=== PATIENT | male | born 1980 | race Two or more races ===

== ENCOUNTER 2017-04-25 20:47 | Emergency (ER) | payer OTHER ==
[~2017-04-25] VITALS: Ht 182.9 cm; Wt 77.1 kg
--- NOTE | 2017-04-25 20:47 | NUR ---
PT SPRING FROM IN AND OUT C/O SOB. HX OF ASTHMA EXACERBATION. STATES, RAN OUT OF INHALER. GETTING ALBUTEROL AGRICULTURIST. GOWNED AND PLACED ON MONITOR. STABLE VITALS. AWAITING MD LUNSFORD.
--- NOTE | 2017-04-25 21:02 | NUR ---
KEE WOODS AT BEDSIDE FOR EVAL.
[2017-04-25] MEDS ORDERED: IPRATROPIUM NEB FS 0.5 MG/2.5 ML AMPUL.NEB ONE (21:24)
[2017-04-25] MEDS ORDERED: ALBUTEROL FS 2.5 MG/0.5 ML VIAL.NEB ONE (21:24)
[2017-04-25] MEDS ORDERED: IPRATROPIUM NEB FS 0.5 MG/2.5 ML AMPUL.NEB NEB ONE (21:30)
[2017-04-25] MEDS ORDERED: ALBUTEROL FS 2.5 MG/3 ML VIAL.NEB CONTNEB ONE (21:30)
--- NOTE | 2017-04-25 22:48 | NUR ---
Patient discharged to home in stable condition. Written and verbal after care instructions given. Patient verbalizes understanding of instruction.
[2017-04-25 22:49] VITALS: BP 125/78
== END 2017-04-25 22:50 | disposition home or self-care (01) ==
LOC: ER 20:47
DX: J45.901 Unspecified asthma with (acute) exacerbation (principal); F17.200 Nicotine dependence, unspecified, uncomplicated
CPT/HCPCS: 71045; 94644; 99285; 99406; A4606; Z7610

== ENCOUNTER 2017-06-01 10:20 | Emergency (ER) | payer OTHER ==
[~2017-06-01] VITALS: Ht 185.4 cm; Wt 77.1 kg
[2017-06-01] MEDS ORDERED: Magnesium 1GM/D5W 100ML PREMIX 200 ML IV ONE ×2 (11:12→11:32)
[2017-06-01] MEDS ORDERED: ALBUTEROL FS 2.5 MG/3 ML VIAL.NEB CONTNEB ONE (11:30)
[2017-06-01] MEDS ORDERED: IV NS 0.9% 1,000 ML BAG IV ONE (11:30)
[2017-06-01] MEDS ORDERED: methylPREDNISolone SOD SUCC 125 MG/2ML VIAL IV ONE (11:30)
[2017-06-01] MEDS ORDERED: IPRATROPIUM NEB FS 0.5 MG/2.5 ML AMPUL.NEB NEB ONE (11:30)
[2017-06-01] MEDS ORDERED: methylPREDNISolone SOD SUCC 125 MG/2ML VIAL ONE (11:31)
[2017-06-01] MEDS ORDERED: ALBUTEROL FS 2.5 MG/3 ML VIAL.NEB ONE (11:37)
[2017-06-01] MEDS ORDERED: IPRATROPIUM NEB FS 0.5 MG/2.5 ML AMPUL.NEB ONE (11:37)
[2017-06-01 13:36] VITALS: BP 128/74
== END 2017-06-01 13:38 | disposition home or self-care (01) ==
LOC: ER 10:21
DX: J45.901 Unspecified asthma with (acute) exacerbation (principal); Z72.0 Tobacco use; Z91.19 Patient's noncompliance with other medical treatment and regimen; Z60.2 Problems related to living alone
CPT/HCPCS: A4606; J2930; J3475; J7030; Z7610

== ENCOUNTER 2018-01-12 23:52 | Emergency (ER) | payer OTHER ==
[~2018-01-12] VITALS: Ht 182.9 cm; Wt 81.6 kg
[2018-01-13 00:02] VITALS: BP 118/72
--- NOTE | 2018-01-13 00:05 | NUR ---
RT CALLED FOR BREATHING TX
[2018-01-13] MEDS ORDERED: predniSONE 20 MG TABLET ONE (00:06)
[2018-01-13] MEDS ORDERED: IPRATROPIUM NEB FS 0.5 MG/2.5 ML AMPUL.NEB ONE (00:10)
[2018-01-13] MEDS ORDERED: ALBUTEROL FS 2.5 MG/3 ML VIAL.NEB ONE (00:10)
[2018-01-13] MEDS ORDERED: ALBUTEROL FS 2.5 MG/3 ML VIAL.NEB CONTNEB ONE (00:30)
[2018-01-13] MEDS ORDERED: predniSONE 20 MG TABLET PO ONE (00:30)
[2018-01-13] MEDS ORDERED: IPRATROPIUM NEB FS 0.5 MG/2.5 ML AMPUL.NEB NEB ONE (00:30)
== END 2018-01-13 01:25 | disposition home or self-care (01) ==
LOC: ER 23:57
DX: J45.901 Unspecified asthma with (acute) exacerbation (principal); F17.200 Nicotine dependence, unspecified, uncomplicated; B38.0 Acute pulmonary coccidioidomycosis; Z60.2 Problems related to living alone
CPT/HCPCS: 99283; A4606; J7512; Z7610

== ENCOUNTER 2018-06-12 14:24 | Emergency (ER) | payer MEDICAID, OTHER ==
[~2018-06-12] VITALS: Ht 182.9 cm; Wt 77.1 kg
[2018-06-12] MEDS ORDERED: IPRATROPIUM NEB FS 0.5 MG/2.5 ML AMPUL.NEB ONE (14:31)
[2018-06-12] MEDS ORDERED: ALBUTEROL FS 2.5 MG/3 ML VIAL.NEB ONE (14:31)
[2018-06-12 14:32] VITALS: BP 104/83
[2018-06-12] MEDS ORDERED: ALBU8.5H8 IH (14:35)
[2018-06-12] MEDS ORDERED: FLUT1DIS3 INH (14:46)
[2018-06-12] MEDS ORDERED: predniSONE 20 MG TABLET PO ONE (15:00)
[2018-06-12] MEDS ORDERED: IPRATROPIUM NEB FS 0.5 MG/2.5 ML AMPUL.NEB NEB ONE (15:00)
[2018-06-12] MEDS ORDERED: ALBUTEROL FS 2.5 MG/3 ML VIAL.NEB NEB ONE (15:00)
[2018-06-12] MEDS ORDERED: predniSONE 20 MG TABLET ONE (15:02)
--- NOTE | 2018-06-12 16:11 | NUR ---
SPO2 99% in room air, Breathing even and unlabored, No SOB noted. Patient discharged to home in stable condition. Written and verbal after care instructions given. Patient verbalizes understanding of instruction.
== END 2018-06-12 16:17 | disposition home or self-care (01) ==
LOC: ER 14:26
DX: J45.909 Unspecified asthma, uncomplicated (principal); F17.200 Nicotine dependence, unspecified, uncomplicated; Z60.2 Problems related to living alone
CPT/HCPCS: 94640 ×2; 99284; J7512